=== PATIENT | female | born 1980 | race Asian ===

== ENCOUNTER 2017-04-07 09:27 | Emergency (ER) | payer MEDICAID, OTHER ==
[2017-04-07 09:42] VITALS: BP 99/72
--- NOTE | 2017-04-07 11:47 | RAD ---
INDICATION: Hemoptysis. Cough. History of +PPD. COMPARISON: December 24, 2015 through April 18, 2013 TECHNIQUE: Dual energy PA and routine lateral views of the chest were obtained. REPORT: Elevated lung volumes and both diffuse mild prominence of the interstitial markings and patchy rarefaction of the mid to upper lung zone interstitial markings. 2.3 x 2.5 cm region of soft tissue density at the LEFT lung base is grossly unchanged compared with the April 18, 2013 exam consistent with benign etiology. No new focal pulmonary lesion or alveolar consolidation. Negative for pleural effusion or pneumothorax. The heart, pulmonary vasculature, and mediastinal contours are unremarkable. No suspicious focal osseous lesions evident. IMPRESSION: 1. Stigmata of probable chronic obstructive pulmonary disease and emphysema. 2. Chronic pleural parenchymal scarring at the LEFT lung base. 3. No compelling radiographic evidence for pneumonia. Correlate with clinical assessment and consider CT for further evaluation if deemed appropriate.
--- NOTE | 2017-04-07 12:31 | UC ---
Throat Pain/Nasal [place] HPI - HPI Summary HPI Summary: FOUR DAYS AGO, NOTED SMALL BLOOD CLOT IN THROAT, THREE DAYS AGO COUGHED AND NOTICED JAYCOB BLOOD. THROAT FEELS IRRITATED. NO RECENT COLD SYMPTOMS OR WHEEZING. NO BLEEDING DISORDERS. FIVE YEARS AGO TREATED FOR RESPIRATORY INFECTION (POSS TB?) IN [place]. NO FEVERS. NO SWEATS. NO DIFFICULTY SWALLOWING. NO BLOOD IN STOOL. NO ABDOMINAL PAIN. NO CHEST PAIN OR SOB. NO FREQUENT COUGH. - History of Current Complaint Chief Complaint: UCRespiratory Stated Complaint: THROAT COMPLAINT Time Seen by Provider: 04/07/17 10:35 Hx Obtained From: Patient, Family/Wild Animal Caretaker Hx Last Menstrual Period: 03/07/17 Onset/Duration: Gradual Onset, Lasting Days, Resolved Severity: Mild Pain Intensity: 0 Pain Scale Used: 0-10 Numeric Cough: Sputum Appears - POSSIBLE BLOOD Associated Signs & Symptoms: Negative: Dysphagia, FB Sensation, Drooling, Wheezing, Hoarseness, Sinus Discomfort, Nasal Discharge, Fever, Vomiting, Rash - Epiglottits Risk Factors Epiglottis Risk Factors: Negative - Allergies/Home Medications Allergies/Adverse Reactions: Allergies Allergy/AdvReac Type Severity Reaction Status Date / Time No Known Allergies Allergy Verified 03/21/15 19:11 Home Medications: Home Medications Calcium W/ Vitamins D & K [Calcium + D + K] 1 tab PO 04/07/17 [History] PMH/Surg Hx/FS Hx/Imm Hx Previously Healthy: Yes Respiratory History: Other - PULMONARY PATHOLOGY 5 YRS AGO Other Respiratory History: PULMONARY PATHOLOGY 5 YRS AGO - Surgical History Surgical History: Yes Surgery Procedure, Year, and Place: - Family History Known Family History: Negative: Respiratory Disease - Social History Occupation: Employed Full-time Lives: With Family Alcohol Use: None Substance Use Type: None Smoking Status (MU): Never Smoked Tobacco Have You Smoked in the Last Year: No - Immunization History Most Recent Influenza Vaccination: 08/03/15 Most Recent Tetanus Shot: 05/16/15 Most Recent Pneumonia Vaccination: none Review of Systems Constitutional: Negative Skin: Negative Eyes: Negative ENT: Sore Throat Respiratory: Cough Cardiovascular: Negative Gastrointestinal: Negative Genitourinary: Negative Motor: Negative Neurovascular: Negative Musculoskeletal: Negative Neurological: Negative Psychological: Negative All Other Systems Reviewed And Are Negative: Yes Physical Exam Triage Information Reviewed: Yes Appearance: Well-Appearing, No Pain Distress, Well-Nourished, Thin Vital Signs: Initial Vital Signs Temp 97.7 F 04/07/17 09:36 Pulse 66 04/07/17 09:36 Resp 18 04/07/17 09:36 BP 99/72 04/07/17 09:36 Pulse Ox 100 04/07/17 09:36 Vital Signs Reviewed: Yes Eye Exam: Normal ENT Exam: Normal ENT: Positive: Normal ENT inspection, Hearing grossly normal, Pharynx normal, TMs normal Dental Exam: Normal Neck exam: Normal Neck: Positive: Supple, Nontender, No Lymphadenopathy Respiratory Exam: Normal Respiratory: Positive: Chest non-tender, Lungs clear, Normal breath sounds, No respiratory distress, No accessory muscle use Cardiovascular Exam: Normal Cardiovascular: Positive: RRR, No Murmur, Pulses Normal Abdominal Exam: Normal Musculoskeletal Exam: Normal Musculoskeletal: Positive: Strength Intact, ROM Intact Neurological Exam: Normal Psychological Exam: Normal Skin Exam: Normal Throat Pain/Nasal Course/Dx - Differential Dx/Diagnosis Differential Diagnosis/HQI/PQRI: Sinusitis, URI Provider Diagnoses: POSSIBLE HEMOPTYSIS; 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 YOUR THROAT CULTURE RESULTS WILL RETURN IN TWO DAYS. YOU PRIMARY CARE PROVIDER MAY ELECT TO ORDER ADDITIONAL BLOODWORK.
== END 2017-04-07 12:02 | disposition home or self-care (01) ==
LOC: UCEAST 09:27
DX: J98.4 Other disorders of lung (principal)
CPT/HCPCS: 71020; 87070; 87651; 99211; G0463

== ENCOUNTER 2017-05-05 13:21 | Emergency (ER) | payer OTHER ==
[2017-05-05 13:38] VITALS: BP 96/64
--- NOTE | 2017-05-05 14:07 | UC ---
Ear Complaint HPI - HPI Summary HPI Summary: PT presents to ED through amb triage. Pt reports over last 7-10 days has had progressive right max sinus pain and pressure and right ear pain. Pt reports sinus congestion and PND. Pt states when blows nose, thick green secretions and temporary improvement of sx. Pt with chills, no fevers. Pt with mild discomfort , pressure upper teeth.Pt has use motrin with intermittent improvement of symptoms. NO drainage. No joseph, vision changes. Pt's medications reviewed at this visit. - History of Current Complaint Chief Complaint: UCRespiratory Stated Complaint: SINUS /FORHEAD PAIN CONTINUING Time Seen by Provider: 05/05/17 13:44 Hx Obtained From: Patient Hx Last Menstrual Period: 04/18/17 Onset/Duration: Gradual Onset Severity Initially: Moderate Severity Currently: Moderate Pain Intensity: 4 Pain Scale Used: 0-10 Numeric - Allergies/Home Medications Allergies/Adverse Reactions: Allergies Allergy/AdvReac Type Severity Reaction Status Date / Time No Known Allergies Allergy Verified 05/05/17 13:38 PMH/Surg Hx/FS Hx/Imm Hx Previously Healthy: Yes - Surgical History Surgical History: Yes Surgery Procedure, Year, and Place: - Family History Known Family History: Negative: Respiratory Disease - Social History Occupation: Employed Full-time - school manager aide Alcohol Use: None Substance Use Type: None Smoking Status (MU): Never Smoked Tobacco Have You Smoked in the Last Year: No - Immunization History Most Recent Influenza Vaccination: 08/03/15 Most Recent Tetanus Shot: 05/16/15 Most Recent Pneumonia Vaccination: none Review of Systems Constitutional: Negative Skin: Negative Eyes: Negative ENT: Ear Ache, Sinus Congestion, Sinus Pain/Tenderness Respiratory: Negative Cardiovascular: Negative Gastrointestinal: Negative Genitourinary: Negative Motor: Negative Neurovascular: Negative Musculoskeletal: Negative Neurological: Negative Psychological: Negative All Other Systems Reviewed And Are Negative: Yes Physical Exam Triage Information Reviewed: Yes Appearance: Well-Appearing, No Pain Distress, Well-Nourished Vital Signs: Initial Vital Signs Temp 99.2 F 05/05/17 13:34 Pulse 77 05/05/17 13:34 Resp 16 05/05/17 13:34 BP 96/64 05/05/17 13:34 Pulse Ox 100 05/05/17 13:34 Vital Signs Reviewed: Yes Eye Exam: Normal ENT Exam: Normal ENT: Positive: Hearing grossly normal, Pharynx normal - right TM + fluid, mild retraction left TM wnl turbinates inflammed + PND no exudate, no erythema uvula midline, Nasal congestion, Other: - right frontal and max sinus + TTP Dental Exam: Normal Neck exam: Normal Neck: Positive: Supple, Nontender Respiratory Exam: Normal Respiratory: Positive: Chest non-tender, Lungs clear, Normal breath sounds, No respiratory distress, No accessory muscle use Cardiovascular Exam: Normal Cardiovascular: Positive: RRR, No Murmur, Pulses Normal, Other: - No temporal artery pain Abdominal Exam: Normal Abdomen Description: Positive: Nontender, No Organomegaly, Soft Bowel Sounds: Positive: Present Musculoskeletal Exam: Normal Musculoskeletal: Positive: Strength Intact Neurological Exam: Normal Neurological: Positive: Alert, Muscle Tone Normal Psychological Exam: Normal Skin Exam: Normal Ear Complaint Course/Dx - Course Course Of Treatment: PT with right sinus and right ear pain. Pt with fluid right TM and tenderness with palp max sinus. Will give Rx flonase, amox. hydrate. motrin/apap. secretion precaution. Pt comfortable and in agreement with plan - Differential Dx/Diagnosis Provider Diagnoses: sinusitis Discharge - Discharge Plan Condition: Stable Disposition: HOME Prescriptions: Amoxicillin PO (*) [Amoxicillin 875 MG (*)] 875 mg PO BID #20 tab Fluticasone NASAL * [Flonase *] 2 spray BOTH NARES DAILY #1 spray Patient Education Materials: Sinusitis (ED) Referrals: Constanza Cantu MD [Primary Care Provider] - Additional Instructions: - Stay well hydrated. Drink plenty of non-alcoholic, non-caffinated beverages. - Take antibiotics as prescribed until gone. This may cause diarrhea - use nasal spray as instructed - After you have been on antibiotics for 2 days - change your toothbrush and your pillowcase. These infections are spread by secretions - do NOT share eating or drinking utensils - clean items you share with other people such as cell phones, computer mouse, TV remote, computer tablets, etc - Alternate ibuprofen (Advil, Motrin) 600mg and Tylenol every 3 hours for pain or fever. Take with food. Do NOT take for more than 4-5 days. - Contact your doctor or return with questions or concern
== END 2017-05-05 14:12 | disposition home or self-care (01) ==
LOC: UCEAST 13:21
DX: J32.9 Chronic sinusitis, unspecified (principal)
CPT/HCPCS: 99212; G0463

== ENCOUNTER 2017-12-09 17:06 | Emergency (ER) | payer OTHER ==
--- NOTE | 2017-12-09 18:51 | ED ---
- HPI Summary HPI Summary: Pt here w/ accidental needle stick around 17:00. Reports she was attempting to draw labs on the patient on the unit when she removed the needle from the patient's tissue next only stuck herself with a 23-gauge needle at the base of her ring finger on her right hand. She reports she did bleed and was able to express further blood she also went to wash her hand and bleeding has since stopped. Mild tenderness in the area. Immunizations are up-to-date. The source patient agreed to labs which were ordered by Dr. Nj. Pending results. - History of Current Complaint Chief Complaint: EDGeneral Stated Complaint: BLOOD DRAW Time Seen by Provider: 12/09/17 18:23 PMH/Surg Hx/FS Hx/Imm Hx Previously Healthy: Yes Endocrine/Hematology History: Denies: Hx Anticoagulant Therapy, Hx Blood Disorders, Hx Diabetes, Autoimmune Disease - Surgical History Surgery Procedure, Year, and Place: - Immunization History Immunizations Up to Date: Yes Infectious Disease History: No Infectious Disease History: Denies: Traveled Outside the [place] in Last 30 Days - Family History Known Family History: Negative: Respiratory Disease - Social History Occupation: Employed Full-time - works in [employer] Lives: With Family Alcohol Use: None Hx Substance Use: No Substance Use Type: Reports: None Hx Tobacco Use: No Smoking Status (MU): Never Smoked Tobacco Have You Smoked in the Last Year: No Review of Systems Constitutional: Negative Positive: no symptoms reported Musculoskeletal: Negative Positive: Bruising - small area of bruising at site of stick Neurological: Negative Psychological: Normal All Other Systems Reviewed And Are Negative: Yes Physical Exam Triage Information Reviewed: Yes Vital Signs On Initial Exam: Initial Vitals Temp Pulse Resp BP Pulse Ox 98.4 F 72 14 108/68 100 12/09/17 17:09 12/09/17 17:09 12/09/17 17:09 12/09/17 17:09 12/09/17 17:09 Vital Signs Reviewed: Yes Appearance: Positive: Well-Appearing, No Pain Distress, Well-Nourished Skin: Positive: Warm, Skin Color Reflects Adequate Perfusion, Dry - area of stick over palmar aspect of base of Rt ring finger w/o open wound, bleeding, drainage Head/Face: Positive: Normal Head/Face Inspection Eyes: Positive: EOMI ENT: Positive: Hearing grossly normal Respiratory/Lung Sounds: Positive: Breath Sounds Present Cardiovascular: Positive: Pulses are Symmetrical in both Upper and Lower Extremities Musculoskeletal: Positive: Normal, Strength/ROM Intact Neurological: Positive: Normal, Sensory/Motor Intact, Alert, Oriented to Person Place, Time, CN Intact II-III Psychiatric: Positive: Normal Diagnostics - Vital Signs Vital Signs Temp Pulse Resp BP Pulse Ox 12/09/17 17:09 98.4 F 72 14 108/68 100 - Laboratory Result Diagrams: 12/09/17 18:22 Lab Statement: Any lab studies that have been ordered have been reviewed, and results considered in the medical decision making process. Needlestick Course/Dx - Course Course Of Treatment: Source pt's rapid HIV is negative. Pt does not need PEP. Advised to monitor site for infection and f/u w/ PCP this week. Pt left the dept against advice so her stay appears to be longer than it actually needed to be. She eventually returned and was d/c'd. Agrees w/ plan. - Diagnoses Provider Diagnoses: Needlestick injury accident Discharge - Discharge Plan Condition: Stable Disposition: HOME Patient Education Materials: Body Substance Exposure (ED) Referrals: Constanza Cantu MD [Primary Care Provider] - Additional Instructions: Based on your exposure risk, PEP was not advised today. Continue to monitor site for signs and symptoms of infection and follow up with PCP if these develop. Follow up with PCP for other results of source patient and repeat testing as necessary.
[2017-12-09 18:56] LABS: EGFR Non-African American 88.3 (>60)
[2017-12-09 20:52] VITALS: BP 122/63
== END 2017-12-09 20:29 | disposition home or self-care (01) ==
LOC: ED 17:06
DX: S61.234A Puncture wound without foreign body of right ring finger without damage to nail, initial encounter (principal); W46.1XXA Contact with contaminated hypodermic needle, initial encounter; Y93.89 Activity, other specified; Y92.238 Other place in hospital as the place of occurrence of the external cause; Y99.0 Civilian activity done for income or pay; Z32.02 Encounter for pregnancy test, result negative; Z11.4 Encounter for screening for human immunodeficiency virus [HIV]
CPT/HCPCS: 36415; 80053; 84702; 86703; 86706; 86803; 87340; 99282